=== PATIENT | male | born 1990 | race Caucasian/White ===

== ENCOUNTER 2018-10-26 10:35 | Emergency (ER) | payer MEDICAID ==
[2018-10-26] MEDS ORDERED: KETOROLAC 30 MG/ML VIAL IVP STA (10:50)
[2018-10-26] MEDS ORDERED: CLINDAMYCIN 900 MG/50 ML 50 ML IV ONE (10:50)
--- NOTE | 2018-10-26 10:53 | ED Physician Documentation ---
PD HPI HEENT - Stated complaint Stated Complaint: MOUTH PX/FACIAL SWELLING - Chief complaint Chief Complaint: General - History obtained from History obtained from: Patient - History of Present Illness Timing - onset: How many days ago (3) Timing - duration: Days (3) Timing - details: Still present (getting worse) Location: Throat Associated symptoms: Facial swelling Similar symptoms before: Has not had sx before Recently seen: Clinic (dental clinic three days ago.) - Treatment prior to arrival Treatment prior to arrival: Pen VK. - Additional information Additional information: The patient is a 28-year-old male who presents with pain and swelling of his right jaw. It started as a toothache 3 days ago. He was seen by his dentist and was started on penicillin at that time. He presents now because of increased pain and facial swelling. He denies fever, headache, or earache, but reports difficulty swallowing. He denies history of similar symptoms in the past. Review of Systems Constitutional: denies: Fever Eyes: denies: Irritation Ears: denies: Ear pain Nose: denies: Congestion Throat: reports: Sore throat Cardiac: denies: Chest pain / pressure Respiratory: denies: Dyspnea, Cough GI: denies: Abdominal Pain, Nausea, Vomiting Skin: denies: Rash Neurologic: denies: Headache PD PAST MEDICAL HISTORY - Past Medical History Endocrine/Autoimmune: None - Present Medications Home Medications: Ambulatory Orders Medication Instructions Recorded Confirmed Clindamycin HCl [Clindamycin 300MG 300 mg PO Q6H #28 capsule 10/26/18 CAP] Ibuprofen 800 mg PO TID PRN 10/26/18 10/26/18 Penicillin Vk 500 mg ORAL Q6HR 10/26/18 10/26/18 - Allergies Allergies/Adverse Reactions: Allergies Allergy/AdvReac Type Severity Reaction Status Date / Time No Known Drug Allergies Allergy Verified 10/26/18 10:41 - Social History Does the pt smoke?: Yes Smoking Status: Current every day smoker PD ED PE NORMAL - Vitals Vital signs reviewed: Yes (hypertensive) - General General: Alert and oriented X 3, Well developed/nourished, Other (Appears miserable.) - HEENT HEENT: Atraumatic, PERRL, EOMI, Ears normal, Pharynx benign, Other (There is significant swelling of the right mandibular region of the face, with associated tenderness to palpation. There is a right premolar with a dental filling in place, with associated tenderness to palpation. There is no sublingual swelling.) - Neck Neck: Supple, no meningeal sign, No adenopathy (Enlarged right anterior cervical nodes.), No JVD - Cardiac Cardiac: RRR, No murmur - Respiratory Respiratory: No respiratory distress, Clear bilaterally - Abdomen Abdomen: Soft, Non tender - Back Back: No CVA TTP - Derm Derm: No rash - Extremities Extremities: No tenderness to palpate - Neuro Neuro: Alert and oriented X 3, No motor deficit, Normal speech Results - Vitals Vitals: Vital Signs - 24 hr 10/26/18 10:43 Temperature 37.2 C Heart Rate 83 Respiratory 18 Rate Blood Pressure 164/108 H O2 Saturation 99 Oxygen O2 Source Room air PD MEDICAL DECISION MAKING - ED course Complexity details: re-evaluated patient, considered differential, d/w patient, d/w family ED course: The patient's presentation is most consistent with dental abscess with facial swelling. Attempt to aspirate was unsuccessful. It may be a phlegmon. Treatment in the emergency department included administration of clindamycin 900 mg IV, and ketorolac 30 mg IV. He is being discharged with prescription for clindamycin, and he will discontinue penicillin. He is on Suboxone, so no narcotic pain medication will be prescribed. He has a follow-up appointment scheduled with a dentist. I discussed with him and his uncle potentially worrisome signs or symptoms that should prompt reevaluation in the emergency department. Departure - Departure Disposition: 01 Home, Self Care Clinical Impression: Dental abscess Condition: Stable Instructions: ED Abscess Dental Prescriptions: Clindamycin HCl [Clindamycin 300MG CAP] 300 mg PO Q6H #28 capsule Comments: Take clindamycin 4 times daily as prescribed. You can use ibuprofen, up to 800 mg 3 times daily for pain or discomfort. Follow-up with a dentist within 1 week if possible. Return to the emergency department if you develop increasing facial swelling, increasing difficulty swallowing, or otherwise worsening symptoms.
[2018-10-26] MEDS ORDERED: LIDOCAINE 1%-EPI 1:100000 30 ML MDV SUBQ STA (10:58)
[2018-10-26 14:31] VITALS: BP 127/83
== END 2018-10-26 13:03 | disposition home or self-care (01) ==
LOC: ED 10:35
DX: K04.7 Periapical abscess without sinus (principal); F17.200 Nicotine dependence, unspecified, uncomplicated
CPT/HCPCS: 96365; 96375; 99283

== ENCOUNTER 2019-07-13 14:50 | Outpatient (CLI) | payer MEDICAID ==
--- NOTE | 2019-07-13 17:58 | Ultrasound Report ---
Reason: HEPATITIS C Procedure Date: 07/13/2019 Accession Number: [id number] / [id number] Procedure: US - Abdomen Complete CPT Code: Final Report FULL RESULT: EXAM: ABDOMEN ULTRASOUND EXAM DATE: 07/13/2019 03:30 PM. CLINICAL HISTORY: Hepatitis C. COMPARISON: None. TECHNIQUE: Real-time scanning was performed with static images obtained. FINDINGS: Liver: Liver parenchyma is heterogeneous and mildly hyperechoic. No discrete liver masses or intrahepatic bile duct dilation. However, evaluation for masses is limited secondary to the echogenicity. Right liver measures 17 cm. Main portal vein flow: Hepatopetal. Gallbladder: Normal. No stones, wall thickening, or sonographic Lange's sign. Biliary System: Common bile duct measures 2 mm. No intrahepatic or extrahepatic ductal dilatation. Pancreas: Visualized portion is unremarkable. Kidneys: Right: 11.1 cm longitudinally. Normal. No contour-deforming mass, stones, or hydronephrosis. Left: 11.6 cm longitudinally. Normal. No contour-deforming mass, stones, or hydronephrosis. Spleen: 11.3 x 3.6 x 9 cm. Normal in size and echotexture. Aorta and Inferior Vena Cava: Unremarkable. Other: None. IMPRESSION: 1. Mildly echogenic fatty liver. No mass, cirrhosis or intrahepatic bile duct dilation. 2. Normal gallbladder, common bile duct and pancreas. [facility]
== END 2019-07-13 14:51 | disposition home or self-care (01) ==
LOC: DI 14:50
PROVIDERS: ATTEND Physician Assistant
DX: B19.20 Unspecified viral hepatitis C without hepatic coma (principal); K76.0 Fatty (change of) liver, not elsewhere classified
CPT/HCPCS: 76700